=== PATIENT | male | born 1980 | race Two or more races ===

== ENCOUNTER 2024-05-25 21:42 | Emergency (ER) | payer MEDICARE, MEDICAID, SELFPAY ==
[2024-05-25 21:44] VITALS: PULSE 88; RESP 18; O2SAT 97
[2024-05-25 21:50] VITALS: BP 112/81; PULSE 84; RESP 16; TEMP 36.3; O2SAT 97
[2024-05-25 21:51] VITALS: BMI 31.7
--- NOTE | 2024-05-25 22:00 | PC.NURSE ---
Pt BIB EMS with chief c/o wound recheck to the top of the head after it started to bleed thought the dressing that was place today. Pt reports that he was DC today around 1700hr and at discharge the nurse told him to return to the ER if the wound to the top of his head started to bleed. Pt reports that he was at home when the wound to the top of his head stared bleeding. On assessment the pt had on a clear dressing and a surgicel dressing to the top of left side of the head and the wound was slowing bleeding. There was still one staple intact on the wound in which the Pt stated, they removed all the nelli. Wound care was provided. Pt was given update on plan of care. Call light within reach.
--- NOTE | 2024-05-26 | PD.EDWOUND ---
ED Wound/Laceration-RME/HPI General Chief Complaint: Wound Recheck / Suture Removal Stated Complaint: WOUND CHECKED Time Seen by Provider: 05/25/24 23:57 Arrival date/time: 05/25/24 21:42 Limitations: no limitations RME / HPI RME / HPI narrative: 44-year-old male coming in for wound check. Patient was recently discharged from the hospital today at 3:00. He states that he was admitted and had nelli placed. Today he had some minimal bleeding from the site. No new fall, no headache, and otherwise no bleeding from the buttock, oropharynx, vomiting, diarrhea, chest pain, shortness of breath. Related Data Home Medications ?Medication ?Instructions ?Recorded ?Confirmed lactulose 10 gram/15 mL oral 30 ml PO TID 04/09/21 04/12/24 solution levetiracetam 750 mg tablet 750 mg PO BID 11/25/21 04/12/24 rifaximin 550 mg tablet (Xifaxan) 550 mg PO BID 11/25/21 04/12/24 Allergies Allergy/AdvReac Type Severity Reaction Status Date / Time No Known Allergies Allergy Verified 05/13/24 10:07 ED Exam Narrative Physical exam: Patient lying in the stretcher in no acute distress. Minimal bleeding that is not oozing at the right . General Limitations: Present no limitations; Absent language barrier or altered mental status Eye Eye exam: Present normal appearance; Absent scleral icterus ENT ENT exam: Present other (0.5 cm laceration wound, left parietal. No active bleeding. Staple in place.) Expanded ENT Exam External ear exam: Present other (No external canal bleeding) Neck Neck exam: Present normal inspection; Absent tenderness Respiratory Respiratory exam: Present normal lung sounds bilaterally; Absent respiratory distress or accessory muscle use Abdominal Exam Abdominal exam: Absent distention Extremities Exam Extremities exam: Present other (Below extremities) Neurological Exam Neurological exam: Present alert and other (Following all commands, no ecchymosis) Course Course Course Narrative: Discussed with the resident who discharge the patient earlier today. They did not realize that a staple was left in place. Quality Measures none Orders Category Date Time Status CBC Stat Lab 05/25/24 23:54 Stop Req PT [Prothrombin Time with INR] Stat Lab 05/25/24 23:54 Stop Req PTT [Partial Thromboplastin Time] Stat Lab 05/25/24 23:54 Stop Req Vital Signs Vital signs: Vital Signs Temperature 97.4 F 05/25/24 21:50 Pulse Rate 84 05/25/24 21:50 Respiratory Rate 16 05/25/24 21:50 Blood Pressure 112/81 05/25/24 21:50 Pulse Oximetry (%) 97 05/25/24 21:50 Oxygen Delivery Method Room Air 05/25/24 21:50 Procedures -ED Catheter Insertion (Urinary) Patient has the following: other (Chronic) Bladder Scan/US before Catheterization: No Preparation: Povidone-Iodine Type of Catheter Inserted: Guzmán and other Catheter [place] Size: 16 Topical Anesthesia Used: No Results: unable to pass Patient Tolerated Procedure: well and no complications Complications: other (Unable to pass. Catheter does not easily go into the suprapubic catheter insertion site.) Additional Comments: request that a Guzmán replaced. Guzmán catheter was placed by the nurse. Wound / Laceration MDM Narrative MDM Narrative:: Differential diagnosis includes wound check, bleeding, infection, bleeding and its setting of cirrhosis. There is no other additional bleeding anywhere else on the orifices that is visible or by complaint. [place] removed and otherwise I do not see any active bleeding with pressure. Patient was monitored. At this time I do not feel the patient needs additional labs. Patient data External records reviewed:: [facility] previous records Clinical information provided by:: patient Social determinants that could affect healthcare access:: alcohol use (History of alcohol abuse and past) Patient has the following chronic illnesses:: Cirrhosis How is presenting disease/condition affected by chronic disease/condition?: exacerbated by Evaluation data The following diagnostics were reviewed and interpreted by me:: other (specify) (No labs are obtained) Lab and/or radiology exams considered but not ordered:: N/A Interpretation Summary: No labs were Medications / Prescriptions Medications or Prescriptions considered but not ordered:: None Medication administrations:: Surgicel Consultations Consultation(s) initiated? (list below): No Diagnosis Wound Differential Diagnosis: other (As above) Most likely diagnosis given after review of the tests above:: None/N/A Admission Indicated Admission indicated?: not indicated Admission Request Was there a request for admission?: No Disposition Plan Disposition Plan: Discharge Discharge Attestation Discharge Attestation: The patient and all family members were given an opportunity to ask questions and understood the discharge instructions. Discharge instructions specifically effects, indications for sooner follow up or return to the emergency department, and the expected course of current diagnosis. Patient condition: Stable Discharge Plan Plan Patient Disposition: HOME (Self Care) Patient condition on transfer: Stable Prescriptions/Referrals Prescriptions/Med Rec: No Action levetiracetam 750 mg tablet 750 mg PO BID Patient Comments: TAKE 1&1/2 TABLET BY MOUTH TWICE A DAY Rx Instructions: TAKE 1&1/2 TABLET BY MOUTH TWICE A DAY Xifaxan 550 mg tablet 550 mg PO BID Patient Comments: TAKE 1 TABLET BY MOUTH TWICE A DAY lactulose 10 gram/15 mL solution 30 ml PO TID Problem List Clinical Impression: Visit for wound check Patient/Caregiver Discharge Instructions Education Materials: ED Wound Care Additional Instructions: There was a staple that was left and that was removed. Your bleeding is controlled. Please return to emergency department for any worsening symptoms, or any other concerns. Follow-up with your primary care in the next 48 hours. Print Language: Swedish Stand Alone Forms: Renay Award Info., Patient Portal Info Letter
[2024-05-26 01:00] VITALS: BP 120/75; PULSE 80; RESP 18; O2SAT 98
== END 2024-05-26 01:00 | disposition home or self-care (01) ==
LOC: SERX 05-26 03:20
PROVIDERS: Emergency Provider Emergency Medicine; PCP Physician Assistant
DX: S01.81XD Laceration without foreign body of other part of head, subsequent encounter (principal); X58.XXXD Exposure to other specified factors, subsequent encounter
CPT/HCPCS: 85025; 85610; 85730; 99283

== ENCOUNTER 2024-10-10 07:47 | Emergency (ER) | payer MEDICARE, MEDICAID, SELFPAY ==
[2024-10-10 07:59] VITALS: PULSE 74; RESP 16; O2SAT 98; BMI 25.1
[2024-10-10 08:06] VITALS: BP 130/83; PULSE 71; RESP 15; TEMP 37.1; O2SAT 94
--- NOTE | 2024-10-10 08:07 | XR_ITS ---
Examination: AP chest single view TECHNIQUE: AP portable chest single view INDICATION: Seizure activity today. FINDINGS: No significant cardiac enlargement. No aspiration pneumonia. Osseous structures intact IMPRESSION: No aspiration pneumonia
[2024-10-10 08:18] LABS: Collection Type, Urine Catheter; Squamous Epithelial Cell,Urine 0 /hpf (0-5)
[2024-10-10 08:32] LABS: Bacteria,Urine Rare; Bilirubin,Urine Negative (Negative); Blood,Urine Negative (Negative); Clarity,Urine Clear (Clear/Hazy); Color,Urine Yellow (Lt Yel-Yel); Culture Indicated,Urine Not Indicated; Glucose, Urine Negative (Negative); Ketones,Urine Negative (Negative); Leukocyte Esterase,Urine Negative (Negative); Nitrite,Urine Negative (Negative); PH,Urine 6.5 (5.0-7.0); Protein,Urine Trace (Neg - Trace); RBC,Urine 2 /hpf (0-3); Urobilinogen,Urine Negative mg/dL (0.0-1.0); WBC,Urine < 1 /hpf (0-5)
[2024-10-10 08:33] LABS: Lactate (Lactic Acid) 2.2 mMol/L (0.4-2.0)
[2024-10-10 08:34] LABS: Base Excess, Venous 3 (-3-3); O2 Saturation, Venous 64 % (96-97); PCO2, Venous 51 mmHg (36-56); PO2, Venous 39 mmHg (15-58); pH, Venous 7.37 (7.33-7.66)
[2024-10-10 08:36] LABS: Amphetamine/Methamp Scrn,U Negative (Negative); Barbiturate Screen,Urine Negative (Negative); Benzodiazepines Screen,Urine Negative (Negative); Benzoylecgonine Screen, Ur Negative (Negative); Fentanyl Screen,Urine Negative (Negative); Opiate Screen,Urine Negative (Negative); THC Screen,Urine Negative (Negative)
[2024-10-10 08:39] LABS: Basophils % (Auto) 2 % (0-2.5); Eosinophils # (Auto) 0.1 Thou/mm3 (0.0-0.5); Eosinophils % (Auto) 3 % (0-10); Hematocrit 38.3 % (41.0-53.0); Hemoglobin 12.8 g/dL (13.5-16.0); Immature Granulocytes % (Auto) 0 % (0-0); Lymphocytes # (Auto) 1.1 Thou/mm3 (1.0-4.8); Lymphocytes % (Auto) 54 % (10-50); Mean Corpuscular HGB Conc 33.4 g/dl (31.0-37.0); Mean Corpuscular Hemoglobin 30.1 pg (25.0-35.0); Mean Corpuscular Volume 90 fL (80-100); Monocytes # (Auto) 0.2 Thou/mm3 (0.0-0.8); Monocytes % (Auto) 10 % (0-12); Neutrophils # (Auto) 0.7 Thou/mm3 (1.8-7.7); Neutrophils % (Auto) 32 % (37-80); Nucleated Red Blood Cell % 0 /100 WBC (0); RDW Standard Deviation 63.1 fL (35.1-43.9); Red Blood Count 4.25 Miln/mm3 (4.50-5.90)
[2024-10-10 08:50] LABS: Platelet Count 29 Thou/mm3 (140-440)
[2024-10-10 08:51] LABS: Path Review Blood Smear Sent to Pathologist; Slide Review Platelets confirmed
[2024-10-10 08:54] LABS: Alanine Aminotransferase 22 U/L (10-49); Albumin, Serum 2.9 gm/dL (3.5-5.0); Albumin/Globulin Ratio 0.7 (1.2-2.2); Alcohol, Blood Medical 279.3 mg/dL (0-10.0); Alkaline Phosphatase 66 U/L (46-116); Anion Gap 9 (7-16); Aspartate Amino Transferase 91 U/L (0-34); BUN/Creatinine Ratio 7 Ratio (12-20); Bilirubin,Total 4.8 mg/dL (0.3-1.2); Blood Urea Nitrogen < 5 mg/dL (9-23); Calcium 7.7 mg/dL (8.3-10.6); Calcium (Corrected) 8.6 mg/dL (8.5-10.1); Carbon Dioxide 26.9 mMol/L (20.0-31.0); Chloride 108 mMol/L (98-107); Creatinine (Component) 0.7 mg/dL (0.6-1.3); Estimated Creatinine Clearance 133.3 mL/min (>60); Globulin 4.2 gm/dL (2.3-3.5); Glucose 86 mg/dL (74-106); Osmolality,Calculated 283 (275-295); Potassium 3.2 mMol/L (3.4-5.1); Sodium 144 mMol/L (136-145); Total Protein 7.1 gm/dL (5.7-8.2); eGFR > 60 See Note
--- NOTE | 2024-10-10 09:44 | PC.NURSE ---
Received verbal order for 1000mg Keppra and 4mg morphine IV x 1.
[2024-10-10] MEDS: levETIRAcetam INJ 100 MG/ML VIAL 5ML 1000 MG IVP (10:03)
[2024-10-10] MEDS: MORPHINE SULF INJ 10 MG/ML VIAL 4 MG IVP (10:04)
[2024-10-10 10:39] VITALS: BP 130/75; PULSE 63; RESP 14; TEMP 37; O2SAT 95
--- NOTE | 2024-10-10 11:09 | PD.EDSEIZ ---
ED Seizures RME/HPI General Chief Complaint: Seizure Stated Complaint: SEIZURES Time Seen by Provider: 10/10/24 07:51 Arrival date/time: 10/10/24 07:47 RME / HPI RME / HPI Narrative: DR. ARCINIEGA MAIN ED EVALUATION: 44-year-old gentleman presents to the Emergency Department BIB after he who woke up having a seizure witnessed by his girlfriend lasting approximately minute was brought in by EMS. Patient also noted to have a cough after the seizure. Patient also has bruising on his body that is unexplained. Patient was somewhat postictal and the girlfriend was not present initially. See [facility] for updates. Related Data Home Medications ?Medication ?Instructions ?Recorded ?Confirmed lactulose 10 gram/15 mL oral 30 ml PO TID 04/09/21 04/12/24 solution levetiracetam 750 mg tablet 750 mg PO BID 11/25/21 04/12/24 rifaximin 550 mg tablet (Xifaxan) 550 mg PO BID 11/25/21 04/12/24 Allergies Allergy/AdvReac Type Severity Reaction Status Date / Time No Known Allergies Allergy Verified 10/10/24 08:07 Review of Systems Review of Systems Systems Reviewed: All systems reviewed, normal except as documented Narrative Review of Systems: Constitutional: DENIES: fevers; Eyes: DENIES: loss of vision; Head/Ear/Nose: DENIES: loss of hearing. Throat: DENIES: dysphagia. Cardiovascular: DENIES: chest pain, dyspnea, or syncope. Respiratory: POSITIVES: cough after seizure; DENIES: shortness of breath; Gastrointestinal: DENIES: rectal bleeding or melena. Genitourinary: DENIES: dysuria (painful or difficult urination); Musculoskeletal: DENIES: arthralgia (pain in a joint); Skin: DENIES: rash; Neurological: POSITIVES: seizure (see HPI); DENIES: loss of function or movement; Psychiatric: DENIES: recent major life stressor, emotional problem, illicit drug use or abuse; Endocrinology: DENIES: weight change,; Hematologic/Lymphatic: DENIES: abnormal bruising. Allergic/Immunologic: DENIES: urticaria (hives). Past Medical History Past Medical History NEUROLOGIC: Positive Neurological Disorders, Cerebrovascular Accident, Seizures and Traumatic Brain Injury CARDIAC: Positive Hypercholesterolemia and Hypertension GASTROINTESTINAL: Positive Gastrointestinal Disorders, Cirrhosis, Gastrointestinal Bleed and Obesity MUSCULOSKELETAL: Positive Musculoskeletal Disorders and Fractures HEMATOLOGIC: Positive Blood Disorders and Anemia PSYCHO/SOCIAL: Positive Recreational Drug Use, Depression and Anxiety OTHER HISTORY: Positive Blood Transfusions Surgical History SURGICAL: Positive Neurologic Surgery Social History SMOKING STATUS: Never smoker SUBSTANCE USE: does not use ALCOHOL: Current ED Exam Narrative Physical exam: Physical Exam: General: The vital signs were reviewed. The patient is non-toxic, in no apparent distress and appears healthy with a patent airway, no respiratory distress and has no apparent circulatory problems. Head & Scalp: Normocephalic, atraumatic. Face: Appears normal and is without lesions, deformity. Ears: Left external pinna appears normal. Right external pinna appears normal. Eyes: The sclera is anicteric. No obvious photophobia. The Left and Right Orbit/Lid/Conjunctiva appears normal without swelling, discoloration or injection. Nose: The nose is without deformity, discharge or tenderness; Throat: Appears normal. The mucous membranes are pink and moist without exudates, redness or mass seen. The tongue appears normal. Neck: The neck is supple and no apparent mass or adenopathy. Chest: The chest wall is normal in size and symmetry and has no chest wall tenderness or crepitus. The patient displays normal ventilator effort without retractions, accessory muscle use and has adequate air movement bilaterally with no wheezes and no rales. Cardiovascular: Regular rate and rhythm; No murmurs, rubs, or gallops; Gastrointestinal: The abdomen appears normal. No obvious hernias or mass. The abdomen is soft and benign, non-distended, with no pain, no guarding and no rebound tenderness. Bowel sounds are present and normal sounding. No CVA tenderness. Genitourinary: Back/Spine: Normal inspection Extremities/Musculoskeletal/lymphatic: The bilateral upper and lower extremities are warm. There is no evidence of arterial insufficiency. There is no evidence of venous insufficiency/edema. The patient spontaneously moves bilateral upper and lower extremities with no pain and no limitation of movement. There is no apparent, injury or trauma. Skin: There are some ecchymosis on the left shoulder and the right flank which seems to be slightly older although some of it might be new otherwise the skin is warm, dry and intact. No rashes. No petechia. No purpura. No abnormal bruising. The color is appropriate with no cyanosis. Mental status/Psychiatric: Mental status is appropriate for age. The patient has no apparent delusions, visual hallucinations, no apparent audible hallucinations. The patient has no apparent suicidal thoughts/ideation and no apparent homicidal thoughts/ideation. Neurological: The patient is awake, alert, interactive, cordial, cooperative and is oriented to name and situation. The patient follows commands and answers historical question with no impairment. There is no visual disturbance apparent. The pupils are equal and reactive bilaterally with normal eye movements and no diplopia The bilateral upper and lower extremities have normal strength, normal range of motion and normal functioning. The gait, station and balance were not initially tested. Course Quality Measures none Orders Category Date Time Status Miscellaneous Nursing Order NOW Care 10/10/24 07:52 Completed XR chest 1V portable Stat Exams 10/10/24 08:07 Completed Alcohol, Blood Medical Stat Lab 10/10/24 08:26 Completed CBC Stat Lab 10/10/24 08:26 Completed Comprehensive Metabolic Panel Stat Lab 10/10/24 08:26 Completed Drug Screen,Urine Stat Lab 10/10/24 08:08 Completed Lactate (Lactic Acid) Stat Lab 10/10/24 08:26 Completed Lactic Acid, 3 HR Stat Lab 10/10/24 11:47 Completed PTT [Partial Thromboplastin Time] Stat Lab 10/10/24 08:26 Completed Path Review Blood Smear Stat Lab 10/10/24 08:26 Completed Prothrombin Time with INR Stat Lab 10/10/24 08:26 Completed Urinalysis, C/S if Indicated Stat Lab 10/10/24 08:08 Completed Venous Blood Gas Stat Lab 10/10/24 08:26 Completed Morphine Inj Med 10/10/24 09:46 Discontinued 4 mg IVP X1 ONE levETIRAcetam INJ [Keppra Inj] Med 10/10/24 09:46 Discontinued 1,000 mg IVP X1 ONE Vital Signs Vital signs: Vital Signs Temperature 98.7 F 10/10/24 08:06 Pulse Rate 71 10/10/24 08:06 Respiratory Rate 15 10/10/24 08:06 Blood Pressure 130/83 10/10/24 08:06 Pulse Oximetry (%) 94 L 10/10/24 08:06 Oxygen Delivery Method Room Air 10/10/24 08:06 Seizure MDM Narrative MDM Narrative:: Patient 44-year-old gentleman comes in with a seizure witnessed by girlfriend evidently missed a dose of his Keppra yesterday. Initially did not report any drinking. There is no reported injury or trauma he had bruising on his body which was curious patient could not explain why. Medical workup was done and it is revealed that his blood [place] level is 0.279 he is reported by his to be heavy drinker and the patient is more alert now states has been drinking for over 20 years. He also has a low platelet level of 29,000 and review of the old chart reveals he has had thrombocytopenia for a long time. And this is not particularly lower than baseline. White count is also low at 2.0 and again he has chronic leukopenia hemoglobins are 12.8 today PTT is 37 pH 7.37 pCO2 of 51 sodium 144 potassium slightly low at 3.2 chloride 108 CO2 is 27. Anion gap is 9 creatinine is 0.7 lactic acid slightly elevated 2.2 AST elevated 91 ALT 22 normal total bilirubin slightly elevated 4.8. Noticed total bilirubin's are often elevated. Urine came back essentially negative. Drug screen came back negative patient had previous CT scans of the head which were negative none was done today. There is been no head trauma noted. Chest x-ray was done because patient was complaining of a cough when he arrived but his chest x-ray is negative and there is no evidence of aspiration at this point his O2 sats have been adequate. Because of his uncertain unreliability on presentation we will get went ahead and load him thousand of Keppra. On my reevaluation patient's girlfriend is present states he drinks regularly. Admits he did not take his Keppra probably yesterday. And they are fully aware of his significant alcohol problem. They were not aware of his risk factors for premature due to his thrombocytopenia and liver disease and coagulopathy. Patient was advised strongly that he must stop drinking. He can go home but he will return if he is having significant withdrawal if he decides to stop drinking. And needs a follow-up with his regular doctor and take his Keppra 1500 mg twice a day as prescribed. Note the initial lactic acid was elevated and the follow-up was normalized. Patient was ambulatory at the time of discharge. He was instructed not to drive he reported that he does not drive Nithya Yusuf am scribing for and in the presence of Dr. Arciniega. Patient data External records reviewed:: [facility] previous records (Reviewed last ED visit dated 07/26/23 , discharged with the following: Visit for wound check) and EMS form Clinical information provided by:: patient and EMS Social determinants that could affect healthcare access:: alcohol use (denies but alcohol was positive today) Patient has the following chronic illnesses:: cirrhosis and seizures How is presenting disease/condition affected by chronic disease/condition?: exacerbated by Evaluation data The following diagnostics were reviewed and interpreted by me:: lab results and radiology exam(s) Lab and/or radiology exams considered but not ordered:: none Interpretation Summary: See above under MDM narrative. RADIOLOGY Procedure(s): XR chest 1V portable Accession Number(s): [id number] cc: Miranda Villafuerte PA-C; Morgan Arciniega MD; Sreekanth Baker MD~ Examination: AP chest single view TECHNIQUE: AP portable chest single view INDICATION: Seizure activity today. FINDINGS: No significant cardiac enlargement. No aspiration pneumonia. Osseous structures intact IMPRESSION: No aspiration pneumonia Dictated By: Sreekanth Baker MD Medications / Prescriptions Medications or Prescriptions considered but not ordered:: none Medication administrations:: Medication Administration History Discontinued Medications Levetiracetam (Levetiracetam Inj 100 Mg/Ml Vial 5ml) 1,000 mg IVP X1 ONE Stop: 10/10/24 09:47 Last Admin: 10/10/24 10:03 Dose: 1,000 mg Documented By: OPAL Morphine Sulfate (Morphine Sulf Inj 10 Mg/Ml Vial) 4 mg IVP X1 ONE Stop: 10/10/24 09:47 Last Admin: 10/10/24 10:04 Dose: 4 mg Documented By: OPAL see above Consultations Consultation(s) initiated? (list below): No Diagnosis Seizure Differential Diagnosis: intractable seizure disorder, generalized seizure, epileptic seizure and other (alcohol use) Most likely diagnosis given after review of the tests above:: See below Admission Indicated Admission indicated?: not indicated Admission Request Was there a request for admission?: No Disposition Plan Disposition Plan: Discharge Discharge Attestation Discharge Attestation: The patient and all family members were given an opportunity to ask questions and understood the discharge instructions. Discharge instructions specifically effects, indications for sooner follow up or return to the emergency department, and the expected course of current diagnosis. Patient condition: Stable Discharge Plan Plan Patient Disposition: HOME (Self Care) Patient condition on transfer: Stable Prescriptions/Referrals Prescriptions/Med Rec: No Action levetiracetam 750 mg tablet 750 mg PO BID Patient Comments: TAKE 1&1/2 TABLET BY MOUTH TWICE A DAY Rx Instructions: TAKE 1&1/2 TABLET BY MOUTH TWICE A DAY Xifaxan 550 mg tablet 550 mg PO BID Patient Comments: TAKE 1 TABLET BY MOUTH TWICE A DAY lactulose 10 gram/15 mL solution 30 ml PO TID Referrals: Miranda Villafuerte PA-C [Primary Care Provider] - In 1 week Problem List Clinical Impression: Breakthrough seizure, Coagulopathy, Thrombocytopenia, Alcohol abuse, Chronic neutropenia, Non-compliance, Acute alcohol intoxication Patient/Caregiver Discharge Instructions Print Language: Azeri Stand Alone Forms: Renay Award Info., Patient Portal Info Letter
[2024-10-10 11:30] LABS: Reflex Lactate? Y
[2024-10-10 11:53] LABS: Lactic Acid, 3 HR 1.4 mMol/L (0.4-2.0)
[2024-10-10 12:08] LABS: INR 1.5 (0.9-1.3); Prothrombin Time 16.3 Seconds (9.0-12.2)
== END 2024-10-10 12:55 | disposition home or self-care (01) ==
PROVIDERS: Emergency Provider Emergency Medicine; PCP Physician Assistant
DX: R56.9 Unspecified convulsions (principal); D68.9 Coagulation defect, unspecified; D69.6 Thrombocytopenia, unspecified; F10.129 Alcohol abuse with intoxication, unspecified
CPT/HCPCS: 36415; 71045; 80053; 80307; 80320; 81001; 82803; 83605; 85025; 85610; 85730; 96374; 96375; 99284; J1953; J2270; G0480

== ENCOUNTER 2025-01-31 21:02 | Emergency (ER) | payer MEDICARE, MEDICAID, SELFPAY ==
[2025-01-31 21:08] VITALS: BMI 26.6
[2025-01-31 21:09] VITALS: BP 123/71; PULSE 82; RESP 18; TEMP 36.8; O2SAT 95
[2025-01-31 21:20] VITALS: PULSE 90; RESP 20; O2SAT 95
--- NOTE | 2025-01-31 21:31 | PD.EDALCOH ---
ED Alcohol RME/HPI General Chief Complaint: Weakness Stated Complaint: ETOH Time Seen by Provider: 01/31/25 21:32 Arrival date/time: 01/31/25 21:02 RME / HPI RME / HPI narrative: This section includes all my notes and documentations, including HPI, PE, and ED course. Robert Ruiz MD HPI: 44yo male JDAE from home presents to the ED due to not feeling good . Per EMS, patient was found down by his family and is a known alcoholic. Patient reports drinking 6 beers today. No nausea or vomiting. No other complaints reported. ROS: All negative except as documented in HPI. Physical Exam: General: Patient is lethargic. Eyes: Conjunctivae and lids clear. ENT: No nasal congestion. Neck: Supple. Heart: RRR. Lungs: No respiratory distress. Good air movement. No rhonchi, wheezing, rales. Abdomen: Soft and nontender. Normal bowel sounds. No distension. No rebound or guarding. Back: No CVA tenderness. Skin: Warm and dry. Neuro: Oriented X 3. Cranial nerves II to XII grossly normal. No peripheral motor deficits. I reviewed EMS notes. I reviewed all diagnostic test results. My interpretation of the EKG is NSR with nonspecific ST-T changes. Blood tests remarkable for Mg 1.1 and K3.4 and LFT elevation and blood Alcohol 390.5. Urine tests are unremarkable. At this point, diagnoses include alcohol intoxication and hypomagnesemia and hypokalemia. Treatment here included Potassium, Zofran, NS, Magnesium, and Thiamine. Patient remained stable. At 6 AM on 02/01/2025, the care of the patient was transferred to Dr. Patel. Robert Ruiz MD Related Data Home Medications ?Medication ?Instructions ?Recorded ?Confirmed lactulose 10 gram/15 mL oral 30 ml PO TID 04/09/21 04/12/24 solution levetiracetam 750 mg tablet 750 mg PO BID 11/25/21 04/12/24 rifaximin 550 mg tablet (Xifaxan) 550 mg PO BID 11/25/21 04/12/24 Allergies Allergy/AdvReac Type Severity Reaction Status Date / Time No Known Allergies Allergy Verified 10/10/24 08:07 Review of Systems Review of Systems Systems Reviewed: All systems reviewed, normal except as documented Past Medical History Past Medical History NEUROLOGIC: Positive Neurological Disorders, Cerebrovascular Accident, Seizures, Head Trauma and Traumatic Brain Injury CARDIAC: Positive Cardiac Disorders, Hypercholesterolemia and Hypertension; Negative Congestive Heart Failure or Edema RESPIRATORY: Negative Chronic Obstructive Pulmonary Disease (COPD) or Asthma GASTROINTESTINAL: Positive Gastrointestinal Disorders, Cirrhosis, Gastrointestinal Bleed and Obesity; Negative Colorectal Cancer GENITOURINARY: Negative Genitourinary Disorders, Renal Disease or Prostate Cancer REPRODUCTIVE: Negative Breast Cancer, Fibroids or Testicular Cancer MUSCULOSKELETAL: Positive Musculoskeletal Disorders and Fractures; Negative Bone Cancer or Carpal Tunnel Syndrome ENT: Positive Head Trauma ENDOCRINE: Negative Endocrine Disorders, Diabetes Mellitus Type 1, Diabetes Mellitus Type 2 or Hypothyroidism HEMATOLOGIC: Positive Blood Disorders and Anemia; Negative Sickle Cell Disease or Clotting Problems PSYCHO/SOCIAL: Positive Recreational Drug Use, Depression and Anxiety OTHER HISTORY: Positive Blood Transfusions; Negative Hospitalization, Autoimmune Disease, Falls, Blood Transfusion Reaction, Anesthesia Reactions, Organ Transplant, Chemotherapy, MRSA, VRSA, Vancomycin-Resistant Enterococci, Human Immunodeficiency Virus (HIV), Chicken Pox, Measles, Mumps, Rubella (Welsh Measles), Pertussis, Clostridium Difficile, Cancer, Breast Cancer, Cervical Cancer, Colorectal Cancer, Lung Cancer, Ovarian Cancer, Prostate Cancer or Testicular Cancer Family History FAMILY HISTORY: Negative Family Psychiatric Problems, Family Respiratory Disorders, Family Cardiac Disorders, Family Gastrointestinal Problems, Family Cancer, Family Surgery or Family Anesthesia Reaction Surgical History SURGICAL: Positive Neurologic Surgery; Negative Cardiac Surgery, Endocrine Surgery, Ear Surgery, Abdominal Surgery, Nephrectomy, Transurethral Resection, Joint Replacement, Amputation, Open Reduction Internal Fixation, Arthroscopy, Brain Shunt, Mastectomy, Lumpectomy, Hysterectomy, Tubal Ligation, Section, Vasectomy or Organ Transplant Social History SMOKING STATUS: Never smoker SUBSTANCE USE: does not use ED Exam Narrative Physical exam: As noted in HPI. Course Quality Measures none Orders Category Date Time Status EKG (ED ONLY) *Do not use* NOW Care 01/31/25 21:35 Completed Miscellaneous Nursing Order NOW Care 01/31/25 21:32 Active Saline [Insert IV] NOW Care 01/31/25 21:33 Active Straight [In and Out Catheter] X1 Care 01/31/25 21:35 Active EKG (ED Only) Stat Exams 01/31/25 21:35 Draft Alcohol, Blood Medical Stat Lab 01/31/25 22:01 Completed Amylase Stat Lab 01/31/25 22:01 Completed Bilirubin,Direct Stat Lab 01/31/25 22:01 Completed CBC Stat Lab 01/31/25 22:01 Completed CK [Creatine Kinase] Stat Lab 01/31/25 22:01 Completed CMP [Comprehensive Metabolic Panel] Stat Lab 01/31/25 22:01 Completed Drug Screen,Urine Stat Lab 01/31/25 00:21 Completed Lipase Stat Lab 01/31/25 22:01 Completed Magnesium Stat Lab 01/31/25 22:01 Completed PT [Prothrombin Time with INR] Stat Lab 01/31/25 22:01 Completed PTT [Partial Thromboplastin Time] Stat Lab 01/31/25 22:01 Completed Troponin I Stat Lab 01/31/25 22:01 Completed UA, C/S IF [Urinalysis, C/S if Indicated] Stat Lab 01/31/25 00:21 Completed KCL 10% Liq UDC 15 ML Med 01/31/25 22:52 Discontinued 40 meq PO X1 ONE Magnesium Sulfate 2 GM Ivpb [Magnesium Sulfate Ivpb] Med 01/31/25 22:52 Discontinued 2 gm in 50 ml IV X1 Magnesium Sulfate 2 GM Ivpb [Magnesium Sulfate Ivpb] Med 02/01/25 04:26 Ordered 2 gm in 50 ml IV X1 Ondansetron Inj [Zofran Inj] Med 01/31/25 21:33 Discontinued 4 mg IVP X1 ONE Sodium Chloride 0.9% 1000 ml [Ns] 1,000 ml Med 02/01/25 04:26 Ordered IV 125 mls/hr Sodium Chloride 0.9% 1000 ml [Ns] 1,000 ml Med 01/31/25 21:33 Discontinued IV 999 mls/hr Sodium Chloride 0.9% 1000 ml [Ns] 1,000 ml Med 01/31/25 22:52 Discontinued IV 999 mls/hr Thiamine Inj [Vitamin B-1 Inj] 100 mg Med 01/31/25 21:33 Discontinued Sodium Chloride 0.9% [Ns] 100 ml IV X1 Vital Signs Vital signs: Vital Signs Temperature 98.3 F 01/31/25 21:09 Pulse Rate 82 01/31/25 21:09 Respiratory Rate 18 01/31/25 21:09 Blood Pressure 123/71 01/31/25 21:09 Pulse Oximetry (%) 95 01/31/25 21:09 Oxygen Delivery Method Room Air 01/31/25 21:09 Discharge Plan Prescriptions/Referrals Prescriptions/Med Rec: No Action levetiracetam 750 mg tablet 750 mg PO BID Patient Comments: TAKE 1&1/2 TABLET BY MOUTH TWICE A DAY Rx Instructions: TAKE 1&1/2 TABLET BY MOUTH TWICE A DAY Xifaxan 550 mg tablet 550 mg PO BID Patient Comments: TAKE 1 TABLET BY MOUTH TWICE A DAY lactulose 10 gram/15 mL solution 30 ml PO TID Problem List Clinical Impression: Alcohol intoxication, Hypomagnesemia Patient/Caregiver Discharge Instructions Print Language: Kyrgyz Alcohol MDM Narrative MDM Narrative: 44yo male JADE from home presents to the ED due to not feeling good . Per EMS, patient was found down by his family and is a known alcoholic. Patient reports drinking 6 beers today. No nausea or vomiting. No other complaints reported. Patient data External records reviewed:: [facility] previous records (Per chart review, patient was seen here on 10/10/24 for alcohol intoxication.) and EMS form Clinical information provided by:: patient and EMS Social determinants that could affect healthcare access:: alcohol use Patient has the following chronic illnesses:: seizures How is presenting disease/condition affected by chronic disease/condition?: uneffected by Evaluation data The following diagnostics were reviewed and interpreted by me:: lab results and EKG tracing(s) (My interpretation of the EKG is: Sinus rhythm (71 bpm) with nonspecific ST-T changes. Robert Ruiz MD) Lab and/or radiology exams considered but not ordered:: none Interpretation Summary: I reviewed all diagnostic test results. My interpretation of the EKG is NSR with nonspecific ST-T changes. Blood tests remarkable for Mg 1.1 and K3.4 and LFT elevation and blood Alcohol 390.5. Urine tests are unremarkable. Medications / Prescriptions Medications or Prescriptions considered but not ordered:: none Medication administrations:: Medication Administration History Magnesium Sulfate (Magnesium Sulfate Ivpb) 2 gm in 50 mls @ 25 mls/hr IV X1 ONE Stop: 02/01/25 06:25 Sodium Chloride (Ns) 1,000 mls @ 125 mls/hr IV .Q8H ONE Stop: 02/01/25 12:25 Discontinued Medications Sodium Chloride (Ns) 1,000 mls @ 999 mls/hr IV .Q1H1M ONE Stop: 01/31/25 22:33 Last Infusion: 02/01/25 00:03 Dose: Infused Documented By: Admin: 01/31/25 23:02 Dose: 999 mls/hr Documented By: CG Thiamine HCl 100 mg/ Sodium (Chloride) 101 mls @ 202 mls/hr IV X1 ONE Stop: 01/31/25 22:02 Last Infusion: 01/31/25 23:31 Dose: Infused Documented By: Admin: 01/31/25 23:01 Dose: 202 mls/hr Documented By: CG Magnesium Sulfate (Magnesium Sulfate Ivpb) 2 gm in 50 mls @ 25 mls/hr IV X1 ONE Stop: 02/01/25 00:51 Last Admin: 01/31/25 23:33 Dose: 25 mls/hr Documented By: CG Sodium Chloride (Ns) 1,000 mls @ 999 mls/hr IV .Q1H1M ONE Stop: 01/31/25 23:52 Last Admin: 02/01/25 00:15 Dose: 999 mls/hr Documented By: CG Ondansetron HCl (Ondansetron Inj 2 Mg/Ml Inj 2 Ml) 4 mg IVP X1 ONE; Protocol Stop: 01/31/25 21:34 Last Admin: 01/31/25 23:01 Dose: 4 mg Documented By: CG Potassium Chloride (Potassium Chloride 10% 20 Meq/15 Ml Udc) 40 meq PO X1 ONE Stop: 01/31/25 22:53 Last Admin: 01/31/25 23:31 Dose: 40 meq Documented By: CG Potassium, Zofran, NS, Magnesium, Thiamine Consultations Consultation(s) initiated? (list below): No Diagnosis Differential diagnosis alcohol: alcohol withdrawal delirium, hypomagnesemia, alcohol intoxication, alcohol ketoacidosis, alcohol withdrawal syndrome, alcohol withdrawal seizure and other (Dehydration, electrolyte abnormalities) Most likely diagnosis given after review of the tests above:: Alcohol intoxication and hypomagnesemia and hypokalemia Admission Indicated Admission indicated?: not indicated Explain why admission is indicated or not indicated:: AMS Admission Request Was there a request for admission?: No Disposition Plan Disposition Plan: other (specify) (Care of the patient transferred to Dr. Patel at 6 AM on 02/01/25.)
--- NOTE | 2025-01-31 21:35 | EKG_ITS ---
[facility] Test Date: 2025-01-31 Pat Name: MICHAEL ROBERTS Department: Room: - Gender: Male [employer] Supervisor: : 1980 Requested By: Robert Khan Order Number: [id number] Reading MD: Robert Khan Measurements Intervals [place] Rate: 71 P: 91 MS: 171 QRS: 115 QRSD: 119 T: 45 QT: 441 QTc: 480 Interpretive Statements SINUS RHYTHM INCOMPLETE RIGHT BUNDLE BRANCH BLOCK [90+ ms QRS DURATION, TERMINAL R IN V1/V2, 40+ ms S IN I/aVL/V4/V5/V6] POSSIBLE RIGHT VENTRICULAR HYPERTROPHY [SOME/ALL OF: PROMINENT R IN V1, LATE TRANSITION, RAD, IESHA, SSS] PROLONGED QT INTERVAL Compared to ECG 05/18/2024 15:23:43 Prolonged QT interval now present ST (T wave) deviation no longer present /store/S0/[id number]/[id number].pdf
[2025-01-31 22:15] LABS: Basophils # (Auto) 0.0 Thou/mm3 (0.0-0.2); Basophils % (Auto) 1 % (0-2.5); Eosinophils # (Auto) 0.1 Thou/mm3 (0.0-0.5); Eosinophils % (Auto) 4 % (0-10); Hematocrit 34.4 % (41.0-53.0); Hemoglobin 12.2 g/dL (13.5-16.0); Immature Granulocytes Auto 0.01 Thou/mm3 (0.00-0.00); Lymphocytes # (Auto) 1.4 Thou/mm3 (1.0-4.8); Lymphocytes % (Auto) 43 % (10-50); Mean Corpuscular HGB Conc 35.5 g/dl (31.0-37.0); Mean Corpuscular Hemoglobin 33.9 pg (25.0-35.0); Mean Corpuscular Volume 96 fL (80-100); Monocytes # (Auto) 0.3 Thou/mm3 (0.0-0.8); Monocytes % (Auto) 9 % (0-12); Neutrophils # (Auto) 1.5 Thou/mm3 (1.8-7.7); Neutrophils % (Auto) 44 % (37-80); Nucleated Red Blood Cell # 0.00 Thou/mm3 (0.00-0.00); Nucleated Red Blood Cell % 0 /100 WBC (0); RDW Standard Deviation 59.1 fL (35.1-43.9); Red Blood Count 3.60 Miln/mm3 (4.50-5.90); White Blood Count 3.3 Thou/mm3 (3.8-10.6)
[2025-01-31 22:17] LABS: Platelet Count 45 Thou/mm3 (140-440)
[2025-01-31 22:32] LABS: INR 1.4 (0.9-1.3); Partial Thromboplastin Time 34.9 Seconds (22.0-36.0); Prothrombin Time 14.6 Seconds (9.0-12.2)
[2025-01-31 22:39] VITALS: BP 104/59; PULSE 75; RESP 18; TEMP 36.9; O2SAT 96
[2025-01-31 22:45] LABS: Alanine Aminotransferase 19 U/L (10-49); Albumin, Serum 2.8 gm/dL (3.5-5.0); Albumin/Globulin Ratio 0.7 (1.2-2.2); Alcohol, Blood Medical 390.5 mg/dL (0-10.0); Alkaline Phosphatase 92 U/L (46-116); Amylase 136 U/L (30-118); Anion Gap 13 (7-16); Aspartate Amino Transferase 67 U/L (0-34); BUN/Creatinine Ratio 8 Ratio (12-20); Bilirubin,Direct 2.5 mg/dL (0.0-0.3); Bilirubin,Total 4.2 mg/dL (0.3-1.2); Blood Urea Nitrogen < 5 mg/dL (9-23); Calcium 8.1 mg/dL (8.3-10.6); Calcium (Corrected) 9.1 mg/dL (8.5-10.1); Carbon Dioxide 25.1 mMol/L (20.0-31.0); Chloride 110 mMol/L (98-107); Creatine Kinase 369 U/L (34-171); Creatinine (Component) 0.6 mg/dL (0.6-1.3); Estimated Creatinine Clearance 155.5 mL/min (>60); Globulin 4.1 gm/dL (2.3-3.5); Glucose 100 mg/dL (74-106); Lipase 86 U/L (12-53); Magnesium 1.1 mg/dL (1.6-2.6); Osmolality,Calculated 291 (275-295); Potassium 3.4 mMol/L (3.4-5.1); Sodium 148 mMol/L (136-145); Total Protein 6.9 gm/dL (5.7-8.2); Troponin I < 0.020 ng/mL (0.0-0.045); eGFR > 60 See Note
[2025-01-31] MEDS: ONDANSETRON INJ 2 MG/ML INJ 2 ML 4 MG IVP (23:01)
[2025-01-31] MEDS: THIAMINE INJ 100 MG in SODIUM CHLORIDE 0.9% 100 ML 202 MG IV (23:01)
[2025-01-31] MEDS: SODIUM CHLORIDE 0.9% 1000 ML 1,000 ML 999 ML IV (23:02)
[2025-01-31] MEDS: POTASSIUM CHLORIDE 10% 20 MEQ/15 ML UDC 40 MEQ PO (23:31)
[2025-01-31] MEDS: Magnesium Sulfate 2 GM Ivpb 2 GM/50 ML BAG IV (23:33)
[2025-02-01] MEDS: SODIUM CHLORIDE 0.9% 1000 ML 1,000 ML 999 ML IV (00:15)
[2025-02-01 00:23] LABS: Slide Review Platelets confirmed
[2025-02-01 00:54] LABS: Collection Type, Urine Clean Catch; Squamous Epithelial Cell,Urine 0 /hpf (0-5)
[2025-02-01 01:26] LABS: Amorphous Crystals,Urine Present (Absent); Bacteria,Urine Rare; Bilirubin,Urine Negative (Negative); Blood,Urine Negative (Negative); Clarity,Urine Clear (Clear/Hazy); Color,Urine Lt-Yellow (Lt Yel-Yel); Culture Indicated,Urine Not Indicated; Glucose, Urine Negative (Negative); Ketones,Urine Negative (Negative); Leukocyte Esterase,Urine Negative (Negative); Nitrite,Urine Negative (Negative); PH,Urine 6.0 (5.0-7.0); Protein,Urine Negative (Neg - Trace); RBC,Urine 3 /hpf (0-3); Specific Gravity,Urine 1.006 (1.001-1.035); Urobilinogen,Urine Negative mg/dL (0.0-1.0); WBC,Urine < 1 /hpf (0-5)
[2025-02-01 01:32] LABS: Amphetamine/Methamp Scrn,U Negative (Negative); Barbiturate Screen,Urine Negative (Negative); Benzodiazepines Screen,Urine Negative (Negative); Benzoylecgonine Screen, Ur Negative (Negative); Fentanyl Screen,Urine Negative (Negative); Opiate Screen,Urine Negative (Negative); THC Screen,Urine Negative (Negative)
[2025-02-01 04:00] VITALS: BP 88/49; PULSE 71; RESP 15; O2SAT 90
[2025-02-01 05:00] VITALS: BP 98/53; PULSE 63; PULSE 70; RESP 13; RESP 15; TEMP 36.5; TEMP 36.7; O2SAT 90; O2SAT 96
[2025-02-01] MEDS: SODIUM CHLORIDE 0.9% 1000 ML 1,000 ML 125 ML IV (05:58)
[2025-02-01 06:00] VITALS: BP 88/53; PULSE 63; RESP 14; O2SAT 91
[2025-02-01 06:07] VITALS: BP 109/69; PULSE 71; RESP 15; TEMP 36.4; O2SAT 93
[2025-02-01] MEDS: Magnesium Sulfate 2 GM Ivpb 2 GM/50 ML BAG IV (06:18)
[2025-02-01 08:09] VITALS: BP 110/71; PULSE 58; RESP 17; TEMP 36.7; O2SAT 96
--- NOTE | 2025-02-01 08:32 | PC.NURSE ---
report received from pm nurse pt to ER status post fall. last pm C/o of posterior head pain 02/26. pt + for ETOH CIWA =9. pt AAOx2 not oriented to time. PT DENIES N/V/D WILL GIVE FOOD PER md ORDER. CALL LIGHT WITHIN REACH
--- NOTE | 2025-02-01 09:04 | PC.NURSE ---
Patient awake, alert and oriented x 3, patient able to eat crackers and water without c/o n/vomiting. Patient provided with sandwich and juice if he is able to eat with difficulty, Dr. Patel will d/c home.
--- NOTE | 2025-02-01 09:45 | PC.NURSE ---
Patient able to eat 1/2 a sandwich and 120ml of juice without c/o n/v, ok to d/c patient home per Dr. Patel
[2025-02-01 10:00] VITALS: BP 113/72; PULSE 72; RESP 18; O2SAT 98
--- NOTE | 2025-02-01 10:02 | EDNOTE_ITS ---
Emergency Room Addendum Addendum Narrative: 0600: Care assumed from Dr. Ruiz, the previous shift emergency physician. Past medical, surgical, social and family history reviewed. Vitals and home medications reviewed. I will assume the care of the patient at this time, pending reassessment and final disposition. Please refer to the emergency department record for history and examination from initial visit.?The following addendum documentation note is intended to reflect any pending information, findings, or radiology results not included in the patient?s initial chart. 0900: The patient is awake, alert, answering questions. He has remained stable and will be discharged home. caseworker protective services to set up transportation home.
== END 2025-02-01 10:24 | disposition home or self-care (01) ==
PROVIDERS: Emergency Provider Emergency Medicine
DX: F10.129 Alcohol abuse with intoxication, unspecified (principal); Y90.8 Blood alcohol level of 240 mg/100 ml or more; E83.42 Hypomagnesemia; I45.10 Unspecified right bundle-branch block; R94.31 Abnormal electrocardiogram [ECG] [EKG]
CPT/HCPCS: 36415; 80053; 80307; 80320; 81001; 82150; 82248; 82550; 83690; 83735; 84484; 85025; 85610; 85730; 93005; 96361; 96365; 96366; 96375; 99284; J2405; J3411; J3475; J7030; J7050; A9270; G0480

== ENCOUNTER 2025-04-02 16:52 | Emergency (ER) | payer MEDICARE, MEDICAID, SELFPAY ==
[2025-04-02 16:56] VITALS: BP 128/78; PULSE 82; RESP 18; TEMP 37.2; O2SAT 91
--- NOTE | 2025-04-02 17:03 | PD.EDMEDCL ---
ED Medical Clearance RME/HPI General Stated complaint: ETOH Time Seen by Provider: 04/02/25 17:03 Arrival date/time: 04/02/25 16:52 RME / HPI RME / HPI Narrative: DR. NEWELL MAIN ED EVALUATION: 44-year-old male with past medical history of liver cirrhosis, seizures, and chronic alcohol use presents to the Emergency Department BIBA by police and EMS for evaluation of alcohol intoxication. He was reportedly drinking heavily today and fell but has no new injuries. He complains only of chronic ?brain pain? and otherwise denies acute complaints. He is intoxicated on exam but alert enough to provide history. Related Information Home Medications ?Medication ?Instructions ?Recorded ?Confirmed lactulose 10 gram/15 mL oral 30 ml PO TID 04/09/21 04/12/24 solution levetiracetam 750 mg tablet 750 mg PO BID 11/25/21 04/12/24 rifaximin 550 mg tablet (Xifaxan) 550 mg PO BID 11/25/21 04/12/24 Allergies Allergy/AdvReac Type Severity Reaction Status Date / Time No Known Allergies Allergy Verified 10/10/24 08:07 Review of Systems Review of Systems Systems Reviewed: All systems reviewed, normal except as documented Past Medical History Past Medical History NEUROLOGIC: Positive Neurological Disorders, Cerebrovascular Accident, Seizures and Traumatic Brain Injury CARDIAC: Positive Hypercholesterolemia and Hypertension GASTROINTESTINAL: Positive Gastrointestinal Disorders, Cirrhosis, Gastrointestinal Bleed and Obesity MUSCULOSKELETAL: Positive Musculoskeletal Disorders and Fractures HEMATOLOGIC: Positive Blood Disorders and Anemia PSYCHO/SOCIAL: Positive Recreational Drug Use, Depression and Anxiety OTHER HISTORY: Positive Blood Transfusions Surgical History SURGICAL: Positive Neurologic Surgery Social History SMOKING STATUS: Never smoker SUBSTANCE USE: does not use ALCOHOL: Current ED Exam Narrative Physical exam: GENERAL APPEARANCE: patient is intoxicated, well-developed, well-nourished VITALS: All vitals were reviewed and the pulse ox is 91% on room air, which is hypoxic according to my interpretation. HEENT: Normocephalic, atraumatic; pupils equal, round, reactive to light; EOMI; mucous membranes pink, moist; oropharynx clear NECK: Supple LUNGS: CTABL; no wheezes, no rales, no rhonchi HEART: Regular rate, regular rhythm; normal S1, S2; no murmurs ABDOMEN: non distended; normal BS; soft, no tenderness, no guarding, no rebound; no masses, no organomegaly, no hernia BACK: no CVA tenderness EXTREMITIES: atraumatic; no edema NEUROLOGIC: awake; alert and oriented x4; cranial nerves II-XII grossly intact; no focal sensory or motor deficits PSYCHIATRIC: appropriate mood and affect SKIN: warm, dry, normal color; no rashes Course Quality Measures none Vital Signs Vital signs: Vital Signs Temperature 99.0 F 04/02/25 16:56 Pulse Rate 82 04/02/25 16:56 Respiratory Rate 18 04/02/25 16:56 Blood Pressure 128/78 04/02/25 16:56 Pulse Oximetry (%) 91 L 04/02/25 16:56 Oxygen Delivery Method Room Air 04/02/25 16:56 Medical Clearance MDM Narrative MDM Narrative:: INithya am scribing for and in the presence of Dr. Newell. Patient data External records reviewed:: [facility] previous records and EMS form Clinical information provided by:: patient, EMS and law enforcement Social determinants that could affect healthcare access:: alcohol use Patient has the following chronic illnesses:: liver cirrhosis, seizures, and chronic alcohol use How is presenting disease/condition affected by chronic disease/condition?: exacerbated by Evaluation data The following diagnostics were reviewed and interpreted by me:: other (specify) (none) Lab and/or radiology exams considered but not ordered:: none Interpretation Summary: n/a Medications / Prescriptions Medications or Prescriptions considered but not ordered:: none Medication administrations:: see above if any Consultations Consultation(s) initiated? (list below): No Diagnosis Medical Clearance Differential Diagnosis: other (Alcohol intoxication, alcohol-related fall without acute injury, and hepatic encephalopathy.) Most likely diagnosis given after review of the tests above:: alcohol intoxication Admission Indicated Admission indicated?: not indicated Admission Request Was there a request for admission?: No Disposition Plan Disposition Plan: Discharge Discharge Attestation Discharge Attestation: The patient and all family members were given an opportunity to ask questions and understood the discharge instructions. Discharge instructions specifically effects, indications for sooner follow up or return to the emergency department, and the expected course of current diagnosis. Patient condition: Stable Discharge Plan Plan Patient Disposition: HOME (Self Care) Prescriptions/Referrals Prescriptions/Med Rec: No Action levetiracetam 750 mg tablet 750 mg PO BID Patient Comments: TAKE 1&1/2 TABLET BY MOUTH TWICE A DAY Rx Instructions: TAKE 1&1/2 TABLET BY MOUTH TWICE A DAY Xifaxan 550 mg tablet 550 mg PO BID Patient Comments: TAKE 1 TABLET BY MOUTH TWICE A DAY lactulose 10 gram/15 mL solution 30 ml PO TID Problem List Clinical Impression: Alcohol intoxication Patient/Caregiver Discharge Instructions Education Materials: ED Alcohol Intoxication Print Language: Japanese Stand Alone Forms: [employer] Award Info., Patient Portal Info Letter
--- NOTE | 2025-04-02 17:12 | PC.NURSE ---
Officer Dudley HAMPTON here talking with pt. and pt.'s parents.
== END 2025-04-02 18:08 | disposition home or self-care (01) ==
LOC: SERX 17:28
PROVIDERS: Emergency Provider Emergency Medicine
DX: F10.129 Alcohol abuse with intoxication, unspecified (principal); K70.30 Alcoholic cirrhosis of liver without ascites
CPT/HCPCS: 99281

== ENCOUNTER 2025-04-03 12:32 | Emergency (ER) | payer MEDICARE, MEDICAID, SELFPAY ==
[2025-04-03 12:50] VITALS: BMI 26.6
[2025-04-03 13:06] VITALS: BP 130/79; PULSE 88; RESP 18; TEMP 37.3; O2SAT 97
--- NOTE | 2025-04-03 13:16 | XR_ITS ---
Termination: Bilateral lower legs 4 views Technique one AP lateral right tibia-fibula is 4 views Date and time: April 03, 2025 1343 hours INDICATIONS: Lower leg swelling and pain months. FINDINGS: No fracture or dislocation involving either lower leg. No cortical bone destruction No foreign bodies IMPRESSION: No fracture or dislocation involving either lower leg
--- NOTE | 2025-04-03 13:16 | XR_ITS ---
Examination: Ankle Bilateral, 6 views Technique: AP oblique lateral each ankle total 6 views Date and time: April 03, 2025 1341 hours INDICATIONS: Ankle pain and swelling months. FINDINGS: Prominent right lateral malleolar soft tissue swelling No fracture or dislocation involving either ankle 5 mm left plantar bony calcaneal spur Bilateral mild osteoarthritis subtalar joints Impression: Prominent right lateral malleolar soft tissue swelling No fracture or dislocation 5 mm left plantar bony calcaneal spur. Bilateral mild osteoarthritis subtalar joints
--- NOTE | 2025-04-03 13:16 | XR_ITS ---
Examination: Knee bilateral, 6 views Technique: Knee AP, lateral, oblique each knee total 6 views Date and time of exam: April 03, 2025 at 1331 hours INDICATIONS: Bilateral knee pain and swelling months. FINDINGS: Bilateral mild narrowing medial joint spaces No fractures or dislocations Small bilateral knee effusions IMPRESSION: Mild bilateral narrowing medial joint spaces
--- NOTE | 2025-04-03 13:16 | XR_ITS ---
Examination: Venous duplex lower extremity sonogram, bilateral. Date and time of exam: April 03, 2025 1520 hours INDICATIONS: Bilateral leg swelling pain and discoloration beginning 2 days ago after falling Technique: Multiple sonographic images of the deep venous system have been obtained. B-mode/2-D grayscale imaging of vascular structures and Doppler spectral analysis (waveforms) and color performed Both legs are examined. Findings: Deep venous systems do not demonstrate abnormal echogenicity. All visualized deep veins exhibit compressibility. All visualized deep veins exhibit augmentation. Impression: Negative for deep vein thrombosis
--- NOTE | 2025-04-03 13:19 | PD.EDRME ---
Rapid Medical Screening Exam [facility] Arrival date/time: 04/03/25 12:32 This is a case of 44-year-old male with history of cirrhosis came in in the emergency room due to multiple falls patient fell yesterday and landed on both lower extremities denies any head neck chest or abdominal injury patient sustained a multiple contusion and abrasion and swelling on the left ankle patient seen on the emergency room and was sent home patient fell again today and stated that he cannot stand up patient denies any other symptoms denies any chest pain shortness of breath palpitation or abdominal pain Chief Complaint: Fall Time Seen by Provider: 04/03/25 12:59 Vital signs: Vital Signs Temperature 99.2 F 04/03/25 13:06 Pulse Rate 88 04/03/25 13:06 Respiratory Rate 18 04/03/25 13:06 Blood Pressure 130/79 04/03/25 13:06 Pulse Oximetry (%) 97 04/03/25 13:06 Oxygen Delivery Method Room Air 04/03/25 13:06
--- NOTE | 2025-04-03 13:20 | EKG_ITS ---
[facility] Test Date: 2025-04-03 Pat Name: MICHAEL ROBERTS Department: Room: - Gender: Male Management Lead: : 1980 Requested By: Spencer Armas Order Number: [id number] Reading MD: Spencer Armas Measurements Intervals [place] Rate: 79 P: 52 [place]: 168 QRS: 72 QRSD: 119 T: 61 QT: 405 QTc: 465 Interpretive Statements SINUS RHYTHM MODERATE INTRAVENTRICULAR CONDUCTION DELAY [110+ ms QRS DURATION] Compared to ECG 01/31/2025 22:13:46 Intraventricular conduction delay now present Incomplete right bundle-branch block no longer present Prolonged QT interval no longer present /store/S0/[id number]/[id number].pdf
[2025-04-03 14:35] LABS: Basophils # (Auto) 0.0 Thou/mm3 (0.0-0.2); Basophils % (Auto) 1 % (0-2.5); Eosinophils # (Auto) 0.0 Thou/mm3 (0.0-0.5); Eosinophils % (Auto) 1 % (0-10); Hematocrit 29.8 % (41.0-53.0); Hemoglobin 9.8 g/dL (13.5-16.0); Immature Granulocytes Auto 0.01 Thou/mm3 (0.00-0.00); Lymphocytes # (Auto) 1.8 Thou/mm3 (1.0-4.8); Lymphocytes % (Auto) 50 % (10-50); Mean Corpuscular HGB Conc 32.9 g/dl (31.0-37.0); Mean Corpuscular Hemoglobin 32.6 pg (25.0-35.0); Mean Corpuscular Volume 99 fL (80-100); Monocytes # (Auto) 0.4 Thou/mm3 (0.0-0.8); Monocytes % (Auto) 10 % (0-12); Neutrophils # (Auto) 1.3 Thou/mm3 (1.8-7.7); Neutrophils % (Auto) 37 % (37-80); Nucleated Red Blood Cell # 0.00 Thou/mm3 (0.00-0.00); Nucleated Red Blood Cell % 0 /100 WBC (0); RDW Standard Deviation 58.4 fL (35.1-43.9); Red Blood Count 3.01 Miln/mm3 (4.50-5.90); White Blood Count 3.5 Thou/mm3 (3.8-10.6)
[2025-04-03 14:44] LABS: Platelet Count 29 Thou/mm3 (140-440)
[2025-04-03 14:55] LABS: Ammonia 20 uMol/L (11-32)
[2025-04-03 14:58] LABS: Alanine Aminotransferase 24 U/L (10-49); Albumin, Serum 3.1 gm/dL (3.5-5.0); Albumin/Globulin Ratio 0.8 (1.2-2.2); Alkaline Phosphatase 69 U/L (46-116); Anion Gap 12 (7-16); Aspartate Amino Transferase 99 U/L (0-34); BUN/Creatinine Ratio 8 Ratio (12-20); Bilirubin,Total 5.5 mg/dL (0.3-1.2); Blood Urea Nitrogen < 5 mg/dL (9-23); Calcium 8.0 mg/dL (8.3-10.6); Calcium (Corrected) 8.7 mg/dL (8.5-10.1); Carbon Dioxide 24.2 mMol/L (20.0-31.0); Chloride 106 mMol/L (98-107); Creatinine (Component) 0.6 mg/dL (0.6-1.3); Estimated Creatinine Clearance 155.5 mL/min (>60); Globulin 3.8 gm/dL (2.3-3.5); Glucose 97 mg/dL (74-106); Osmolality,Calculated 280 (275-295); Potassium 3.6 mMol/L (3.4-5.1); Sodium 142 mMol/L (136-145); Total Protein 6.9 gm/dL (5.7-8.2); Troponin I 0.022 ng/mL (0.0-0.045); eGFR > 60 See Note
--- NOTE | 2025-04-03 15:12 | XR_ITS ---
Examination: Right femur 2 views Technique one AP lateral right femur 2 views Date and time: April 03, 2025 1546 hrs. Indications: Right leg pain after falling today. Findings: No right hip fracture or dislocation Mild narrowing hip joints Shaft of the femur intact Impression: No acute femur fracture
--- NOTE | 2025-04-03 15:12 | EDNOTE_ITS ---
<Statement entered by Pat Newell MD - 04/03/25 17:54> As co-signing physician, I was present and available for consult prn. I concur with the plan and care as documented by the midlevel provider. ED General RME/HPI General Chief complaint: Fall Stated complaint: FALL04/02 AND 04/03, WEAKNESS BILAT LEGS,HX CIRHOSIS Time Seen by Provider: 04/03/25 12:59 Arrival date/time: 04/03/25 12:32 CC: Right leg pain after falling yesterday. The patient is a exceedingly poor historian has a history of alcohol abuse and takes lactulose and Keppra for seizures. Patient denies chest pain shortness of breath or difficulty breathing. RME / HPI RME / HPI narrative: 04/03/25 12:32 This is a case of 44-year-old male with history of cirrhosis came in in the emergency room due to multiple falls patient fell yesterday and landed on both lower extremities denies any head neck chest or abdominal injury patient sustained a multiple contusion and abrasion and swelling on the left ankle patient seen on the emergency room and was sent home patient fell again today and stated that he cannot stand up patient denies any other symptoms denies any chest pain shortness of breath palpitation or abdominal pain Related Data Home Medications ?Medication ?Instructions ?Recorded ?Confirmed lactulose 10 gram/15 mL oral 30 ml PO TID 04/09/21 solution levetiracetam 750 mg tablet 750 mg PO BID 11/25/21 rifaximin 550 mg tablet (Xifaxan) 550 mg PO BID 04/12/24 Allergies Allergy/AdvReac Type Severity Reaction Status Date / Time No Known Allergies Allergy Verified 04/03/25 12:52 Review of Systems Review of Systems Narrative Review of Systems: GEN: No fever, no chills, no weight loss EYES: No discharge, no visual changes, no pain HEENT: No ear pain, no congestion, no sore throat PULM: No shortness of breath, no cough, no congestion CV: No chest pain, no dyspnea on exertion, no palpitations GI: No nausea, no vomiting, no diarrhea, no pain, no constipation : No frequency, no urgency, no dysuria MUSC/SKEL: No joint pain, no back pain,+ lower extremity pain SKIN: No rash PSYCH: No hallucinations, no depression HEME/LYMPH: No easy bleeding or bruising tendencies NEURO: No weakness, no headache Past Medical History Past Medical History NEUROLOGIC: Positive Neurological Disorders, Cerebrovascular Accident, Seizures, Head Trauma and Traumatic Brain Injury CARDIAC: Positive Cardiac Disorders, Hypercholesterolemia and Hypertension; Negative Congestive Heart Failure or Edema RESPIRATORY: Negative Chronic Obstructive Pulmonary Disease (COPD) or Asthma GASTROINTESTINAL: Positive Gastrointestinal Disorders, Cirrhosis, Gastrointestinal Bleed and Obesity; Negative Colorectal Cancer GENITOURINARY: Negative Genitourinary Disorders, Renal Disease or Prostate Cancer REPRODUCTIVE: Negative Breast Cancer, Fibroids or Testicular Cancer MUSCULOSKELETAL: Positive Musculoskeletal Disorders and Fractures; Negative Bone Cancer or Carpal Tunnel Syndrome ENT: Positive Head Trauma ENDOCRINE: Negative Endocrine Disorders, Diabetes Mellitus Type 1, Diabetes Mellitus Type 2 or Hypothyroidism HEMATOLOGIC: Positive Blood Disorders and Anemia; Negative Sickle Cell Disease or Clotting Problems PSYCHO/SOCIAL: Positive Recreational Drug Use, Depression and Anxiety OTHER HISTORY: Positive Blood Transfusions; Negative Hospitalization, Autoimmune Disease, Falls, Blood Transfusion Reaction, Anesthesia Reactions, Organ Transplant, Chemotherapy, MRSA, VRSA, Vancomycin- Resistant Enterococci, Human Immunodeficiency Virus (HIV), Chicken Pox, Measles, Mumps, Rubella (Syrian Measles), Pertussis, Clostridium Difficile, Cancer, Breast Cancer, Cervical Cancer, Colorectal Cancer, Lung Cancer, Ovarian Cancer, Prostate Cancer or Testicular Cancer Family History FAMILY HISTORY: Negative Family Psychiatric Problems, Family Respiratory Disorders, Family Cardiac Disorders, Family Gastrointestinal Problems, Family Cancer, Family Surgery or Family Anesthesia Reaction Surgical History SURGICAL: Positive Neurologic Surgery; Negative Cardiac Surgery, Endocrine Surgery, Ear Surgery, Abdominal Surgery, Nephrectomy, Transurethral Resection, Joint Replacement, Amputation, Open Reduction Internal Fixation, Arthroscopy, Brain Shunt, Mastectomy, Lumpectomy, Hysterectomy, Tubal Ligation, Section, Vasectomy or Organ Transplant Social History SMOKING STATUS: Current every day smoker SUBSTANCE USE: does not use ED Exam Narrative Physical exam: [General: Obese not in any acute distress Head normocephalic, no step-offs hematoma induration ulceration or crepitus HEENT: Eyes pupils are PERRLA EOMs are intact mouth pink dry membranes uvula is midline swallow symmetrical all other subsystems of HEENT are within acceptable limits Neck is supple nontender Chest equal chest rise nontender to palpation Respiratory: Clear to auscultation no wheezes crackles or rubs CV: Rate rhythm is regular no murmurs rubs or clicks Abdomen is distended secondary to body habitus soft nontender no masses positive bowel sounds all 4 quadrants Back: No CVA tenderness no spinous process tenderness from cervical spine thoracic and lumbar spine Skin: Large bruises to both shoulders in various stages of resolution large ecchymotic areas to the right calf. Right thigh. Otherwise skin is intact no petechiae rash induration ulceration or crepitus Extremities: Moving all extremity against resistance cap refill less than 2 seconds neurosensory intact Neuro: Awake alert oriented x2, person and place, Glascow coma 15 no focal deficits] Course Quality Measures none Orders Category Date Time Status EKG (ED ONLY) *Do not use* NOW Care 04/03/25 13:20 Completed Saline [Insert IV] NOW Care 04/03/25 15:10 Active EKG (ED Only) Stat Exams 04/03/25 13:20 Draft US venous doppler LE BI Stat Exams 04/03/25 13:16 Completed XR ankle BI min 2V Stat Exams 04/03/25 13:16 Completed XR femur RT 2V Stat Exams 04/03/25 15:12 Completed XR knee BI 3V Stat Exams 04/03/25 13:16 Completed XR tibia fibula BI 2V Stat Exams 04/03/25 13:16 Completed Ammonia Stat Lab 04/03/25 14:12 Completed CBC Stat Lab 04/03/25 14:12 Completed CMP [Comprehensive Metabolic Panel] Stat Lab 04/03/25 14:12 Completed PT [Prothrombin Time with INR] Stat Lab 04/03/25 14:12 Completed PTT [Partial Thromboplastin Time] Stat Lab 04/03/25 14:12 Completed Troponin I Stat Lab 04/03/25 14:12 Completed Morphine* Inj Med 04/03/25 15:11 Discontinued 4 mg IVP X1 ONE Ondansetron Inj [Zofran Inj] Med 04/03/25 15:10 Discontinued 4 mg IVP X1 ONE Vital Signs Vital signs: Vital Signs Temperature 99.2 F 04/03/25 13:06 Pulse Rate 88 04/03/25 13:06 Respiratory Rate 18 04/03/25 13:06 Blood Pressure 130/79 04/03/25 13:06 Pulse Oximetry (%) 97 04/03/25 13:06 Oxygen Delivery Method Room Air 09/15/25 13:06 Discharge Plan Plan Patient Disposition: HOME (Self Care) Patient condition on transfer: Stable Prescriptions/Referrals Prescriptions/Med Rec: No Action levetiracetam 750 mg tablet 750 mg PO BID Patient Comments: TAKE 1&1/2 TABLET BY MOUTH TWICE A DAY Rx Instructions: TAKE 1&1/2 TABLET BY MOUTH TWICE A DAY Xifaxan 550 mg tablet 550 mg PO BID Patient Comments: TAKE 1 TABLET BY MOUTH TWICE A DAY lactulose 10 gram/15 mL solution 30 ml PO TID Referrals: Miranda Villafuerte PA-C [Primary Care Provider] - In 1 week Problem List Clinical Impression: Fall, Contusion of leg, right, Back contusion, Contusion of chest Patient/Caregiver Discharge Instructions Education Materials: ED Contusion, Lower Extremity, ED Chest Wall Contusion, ED Fall Dizziness Weakn Balance Additional Instructions: Avoid alcohol is much as possible follow-up with your primary care doctor if there is worsening of symptoms return the emergency room for reevaluation. Print Language: Albanian Stand Alone Forms: [employer] Award Info., Work/School Release, Patient Portal Info Letter BIN Supervising Physician BIN Supervising Physician: Ari Wu ENP MDM Narrative Sign out note: All x-rays are negative for any acute finding ultrasound is negative for clot, patient is able to stand although he is jittery, I suspect this is secondary to alcohol ingestion. Patient will be discharged home to follow-up with a primary care doctor Clinical Information Provided by patient Medical Records Reviewed [facility] [place] Meds/Rx Considered, not Ordered None Labs/Rad/Tests considered, not Ordered None Chronic Illness/Social Conditions which may negatively complicate care or outcome(s)-explain: ETOH/drugs/substance abuse Add or document further as needed: Cirrhosis Lab Interpretation Lab(s) interpretation(s): CBC shows pancytopenia WBCs of 3.5 H&H of 9.8 and 29.8 respectively with platelets of 29. CMP shows no significant electrolyte imbalances renal impairment T. bili at 5.5 AST 99 no other transaminitis. Imaging Provider imaging interpretation(s): Knee ankle and tib-fib x-rays are negative for any acute fracture malalignment or dislocation as interpreted by me and read by radiology. Medication Administration(s) Medication Administration History Discontinued Medications Morphine Sulfate (Morphine Sulf Inj 4 Mg/Ml Vial) 4 mg IVP X1 ONE Stop: 04/03/25 15:12 Last Admin: 04/03/25 16:22 Dose: 4 mg Documented By: JAQUAN Ondansetron HCl (Ondansetron Inj 2 Mg/Ml Inj 2 Ml) 4 mg IVP X1 ONE; Protocol Stop: 04/03/25 15:11 Last Admin: 04/03/25 16:21 Dose: 4 mg Documented By: JAQUAN
[2025-04-03 15:22] VITALS: BP 137/69; PULSE 82; RESP 17; O2SAT 100
[2025-04-03 15:23] LABS: INR 1.5 (0.9-1.3); Partial Thromboplastin Time 33.9 Seconds (22.0-36.0); Prothrombin Time 16.1 Seconds (9.0-12.2)
[2025-04-03 16:01] LABS: Slide Review Platelets confirmed
[2025-04-03] MEDS: ONDANSETRON INJ 2 MG/ML INJ 2 ML 4 MG IVP (16:21)
[2025-04-03] MEDS: MORPHINE SULF INJ 4 MG/ML VIAL IVP (16:22)
== END 2025-04-03 19:07 | disposition home or self-care (01) ==
PROVIDERS: Nurse Practitioner Family; Registered Nurse General Practice; Emergency Provider Emergency Medicine; PCP Physician Assistant
DX: S80.11XA Contusion of right lower leg, initial encounter (principal); S30.0XXA Contusion of lower back and pelvis, initial encounter; S20.229A Contusion of unspecified back wall of thorax, initial encounter; S10.93XA Contusion of unspecified part of neck, initial encounter; R94.31 Abnormal electrocardiogram [ECG] [EKG]; W19.XXXA Unspecified fall, initial encounter
CPT/HCPCS: 36415; 73552; 73562; 73590; 73600; 73610; 80053; 82140; 84484; 85025; 85610; 85730; 93005; 93970; 96374; 96375; 99283; J2270; J2405

== ENCOUNTER 2025-04-08 15:17 | Emergency (ER) | payer MEDICARE, MEDICAID, SELFPAY ==
[2025-04-08 15:18] VITALS: BMI 23.7
[2025-04-08 15:26] VITALS: BP 130/74; PULSE 90; RESP 18; TEMP 37.1; O2SAT 96
[2025-04-08 16:14] VITALS: BMI 31.5
[2025-04-08 16:59] VITALS: BP 136/69; PULSE 88; RESP 17; TEMP 36.9; O2SAT 98
--- NOTE | 2025-04-08 16:59 | PD.EDSKIN ---
ED Skin Abcess FB-RME/HPI General Chief complaint: Extremity Problem,Nontraumatic Stated complaint: WOUND /SWELLING RIGHT LEG FOR 1 WEEK, WORSE Time Seen by Provider: 04/08/25 16:31 Arrival date/time: 04/08/25 15:17 Limitations: no limitations RME / HPI RME / HPI narrative: DR. HAWLEY MAIN ED EVALUATION: 44-year-old male with past medical history of liver cirrhosis, seizures, and chronic alcohol use presents to the Emergency Department accompanied by his girlfriend for worsening right leg pain. He reports falling previously and was evaluated here on Thursday/ Thursday. Since then, he has developed increased bruising to both legs and the right flank, along with worsening pain in the right leg from bruising. Related Data Home Medications ?Medication ?Instructions ?Recorded ?Confirmed lactulose 10 gram/15 mL oral 30 ml PO TID 04/09/21 04/12/24 solution levetiracetam 750 mg tablet 750 mg PO BID 11/25/21 04/12/24 rifaximin 550 mg tablet (Xifaxan) 550 mg PO BID 11/25/21 04/12/24 Previous Rx's ?Medication ?Instructions ?Recorded mupirocin 2 % topical ointment 1 applic topical QDAY leg wound 04/08/25 #22 grams tramadol 50 mg tablet 50 mg PO TID PRN pain #20 tabs 04/08/25 Allergies Allergy/AdvReac Type Severity Reaction Status Date / Time No Known Allergies Allergy Verified 04/08/25 15:20 Review of Systems Review of Systems Systems Reviewed: All systems reviewed, normal except as documented Past Medical History Past Medical History NEUROLOGIC: Positive Neurological Disorders, Cerebrovascular Accident, Seizures and Traumatic Brain Injury CARDIAC: Positive Hypercholesterolemia and Hypertension GASTROINTESTINAL: Positive Gastrointestinal Disorders, Cirrhosis, Gastrointestinal Bleed and Obesity MUSCULOSKELETAL: Positive Musculoskeletal Disorders and Fractures HEMATOLOGIC: Positive Blood Disorders and Anemia PSYCHO/SOCIAL: Positive Recreational Drug Use, Depression and Anxiety OTHER HISTORY: Positive Blood Transfusions Surgical History SURGICAL: Positive Neurologic Surgery Social History SMOKING STATUS: Never smoker SUBSTANCE USE: does not use ALCOHOL: Current ED Exam General Limitations: Present no limitations General appearance: Present alert and in no apparent distress Head Head exam: Present atraumatic, normocephalic and normal inspection Eye Eye exam: Present normal appearance, PERRL and EOMI ENT ENT exam: Present normal exam, normal oropharynx and mucous membranes moist Neck Neck exam: Present normal inspection, full ROM and trachea midline Chest Chest inspection: Present normal inspection and symmetric chest wall rise Respiratory Respiratory exam: Present normal lung sounds bilaterally Cardiovascular Cardiovascular exam: Present regular rate, normal rhythm and normal heart sounds Abdominal Exam Abdominal exam: Present soft and normal bowel sounds Extremities Exam Extremities exam: Present other (Ecchymosis of the right flank and both legs, right more than left. Also, slightly tender and warm to touch of his extremities.) Expanded Lower Extremity Exam Leg image:  1. Right lower foot wound measuring 1cm by 1 cm, anterior aspect, with some discharge. Back Exam Back exam: Present normal inspection and full ROM Neurological Exam Neurological exam: Present alert, oriented X3 and CN II-XII intact Psychiatric Psychiatric exam: Present normal affect and normal mood Skin Skin exam: Present warm, dry, intact and normal color Course Quality Measures none Vital Signs Vital signs: Vital Signs Temperature 98.8 F 04/08/25 15:26 Pulse Rate 90 04/08/25 15:26 Respiratory Rate 18 04/08/25 15:26 Blood Pressure 130/74 04/08/25 15:26 Pulse Oximetry (%) 96 04/08/25 15:26 Oxygen Delivery Method Room Air 04/08/25 15:26 Skin / Abscess / Foreign Body MDM Narrative MDM Narrative:: I, Nithya Rosas, am scribing for and in the presence of Dr. Hawley. Patient data External records reviewed:: [facility] previous records Clinical information provided by:: patient and spouse Social determinants that could affect healthcare access:: alcohol use Patient has the following chronic illnesses:: Liver cirrhosis, seizures, and chronic alcohol use. How is presenting disease/condition affected by chronic disease/condition?: exacerbated by Evaluation data The following diagnostics were reviewed and interpreted by me:: other (specify) (none) Lab and/or radiology exams considered but not ordered:: none Interpretation Summary: n/a Medications / Prescriptions Medications or Prescriptions considered but not ordered:: none Medication administrations:: none Consultations Consultation(s) initiated? (list below): No Diagnosis Skin/Abscess Differential Diagnosis: other (Traumatic hematoma, fracture, and coagulopathy-related bleeding.) Most likely diagnosis given after review of the tests above:: See clinical impression below. Admission Indicated Admission indicated?: not indicated Admission Request Was there a request for admission?: No Disposition Plan Disposition Plan: Discharge Discharge Attestation Discharge Attestation: The patient and all family members were given an opportunity to ask questions and understood the discharge instructions. Discharge instructions specifically effects, indications for sooner follow up or return to the emergency department, and the expected course of current diagnosis. Patient condition: Stable Discharge Plan Plan Patient Disposition: HOME (Self Care) Patient condition on transfer: Stable Prescriptions/Referrals Prescriptions/Med Rec: New tramadol 50 mg tablet 50 mg PO TID MDD 3 PRN (Reason: pain) Qty: 20 0RF mupirocin 2 % ointment 1 applic topical QDAY MDD 1 application Qty: 22 0RF No Action levetiracetam 750 mg tablet 750 mg PO BID Patient Comments: TAKE 1&1/2 TABLET BY MOUTH TWICE A DAY Rx Instructions: TAKE 1&1/2 TABLET BY MOUTH TWICE A DAY Xifaxan 550 mg tablet 550 mg PO BID Patient Comments: TAKE 1 TABLET BY MOUTH TWICE A DAY lactulose 10 gram/15 mL solution 30 ml PO TID Referrals: Miranda Villafuerte PA-C [Primary Care Provider] - In 1 week Problem List Clinical Impression: Traumatic ecchymosis of right lower leg, Ecchymosis, Fall, Contusion of leg, right, Cirrhosis of liver, Lower extremity edema, Bruise due to impact Impression comment: Ecchymosis right flank Patient/Caregiver Discharge Instructions Discharge Activity: activity as tolerated Education Materials: Bruises (Contusions), ED Cirrhosis, ED Leg Swelling in Both Legs Additional Instructions: Please clean once a day the wound on the lower right leg and dress with Bactroban ointment and cover the wound with a clean gauze dressing each day. Be sure to have the patient elevate his legs above the heart level. Consider using a heating pad in the areas of the bruising which will stimulate quicker healing. Print Language: Bulgarian Stand Alone Forms: [employer] Award Info., Patient Portal Info Letter
[2025-04-08 17:41] VITALS: BP 157/79; PULSE 91; RESP 19; TEMP 36.9; O2SAT 96
== END 2025-04-08 17:43 | disposition home or self-care (01) ==
PROVIDERS: Emergency Provider Family Medicine; PCP Physician Assistant
DX: S80.11XA Contusion of right lower leg, initial encounter (principal); R60.0 Localized edema; K74.60 Unspecified cirrhosis of liver; R56.9 Unspecified convulsions; F10.90 Alcohol use, unspecified, uncomplicated; Z79.899 Other long term (current) drug therapy; W19.XXXA Unspecified fall, initial encounter
CPT/HCPCS: 99281